=== PATIENT | female | born 1940 | race Caucasian/White ===

== ENCOUNTER → 2018-06-18 | Outpatient (CLI) | payer OTHER | LOC: FIMAGING 13:14 | PROVIDERS: ATTEND Family Medicine Geriatric Medicine | DX: Z12.31 Encounter for screening mammogram for malignant neoplasm of breast (principal) ==

== ENCOUNTER → 2018-06-23 | Outpatient (CLI) | payer OTHER | LOC: FIMAGING 11:23 | PROVIDERS: ATTEND Family Medicine Geriatric Medicine | DX: Z13.820 Encounter for screening for osteoporosis (principal); M81.0 Age-related osteoporosis without current pathological fracture; Z78.0 Asymptomatic menopausal state ==